=== PATIENT | female | born 1970 | race Caucasian/White ===

== ENCOUNTER 2017-09-10 12:17 | Day surgery (SDC) | payer OTHER ==
[~2017-09-10 12:17] MED LIST: Lactated Ringers 1,000 ML IV SCH; Lidocaine 1%/Sod Bicarbonate in NS 8.4% 1 ML Syringe PRN; Sodium Chloride 0.9% 10 ML Syringe FLUSH PRN
--- NOTE | 2017-09-10 12:56 | PCM.PREANE ---
Preanesthetic Assessment - Anesthesia/Transfusion/Family Hx Anesthesia History: Prior Anesthesia Reaction Type of Anesthesia Reaction: Excessive Nausea/Vomiting Family History of Anesthesia Reaction: No Transfusion History: No Prior Transfusion(s) Intubation History: Unknown - Review of Systems General: No Symptoms Pulmonary: No Symptoms Cardiovascular: No Symptoms Gastrointestinal: No Symptoms Neurological: No Symptoms Other: Reports: None - Physical Assessment NPO Status Date: 09/09/17 NPO Status Time: 23:00 O2 Sat by Pulse Oximetry: 95 Respiratory Rate: 16 Vital Signs: Last Vital Signs Temp 36.9 C 09/10/17 12:20 Pulse 59 L 09/10/17 12:20 Resp 16 09/10/17 12:20 BP 107/68 09/10/17 12:20 Pulse Ox 95 09/10/17 12:20 ASA Class: 1 Mental Status: Alert & Oriented x3 Airway Class: Mallampati = 1 Dentition: Reports: Normal Dentition Thyro-Mental Finger Breadths: 3 Mouth Opening Finger Breadths: 3 ROM/Head Extension: Full Lungs: Clear to Auscultation, Normal Respiratory Effort Cardiovascular: Regular Rate, Regular Rhythm - Allergies Allergies/Adverse Reactions: Allergies Allergy/AdvReac Type Severity Reaction Status Date / Time Penicillins Allergy Cannot Verified 09/09/17 07:45 Remember Sulfa (Sulfonamide Allergy Cannot Verified 09/09/17 07:45 Antibiotics) Remember - Acknowledgements Anesthesia Type Planned: MAC Pt an Appropriate Candidate for the Planned Anesthesia: Yes Alternatives and Risks of Anesthesia Discussed w Pt/Guardian: Yes Pt/Guardian Understands and Agrees with Anesthesia Plan: Yes PreAnesthesia Questionnaire HEENT History: Reports: Other (See Below) Other HEENT History: brow ptosis, sore throat, nasal polyp Cardiovascular History: Reports: None Respiratory History: Reports: None Gastrointestinal History: Reports: Other (See Below) Other Gastrointestinal History: abdominal pain, blood in stool, diarrhea 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) Other OB/BYN History: hot flashes, 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 Musculoskeletal History: Reports: Other (See Below) Other Musculoskeletal History: plantar fasciitis, shoulder surgery Neurological History: Reports: None Psychiatric History: Reports: None Endocrine/Metabolic History: Reports: Obesity/BMI 30+, Other (See Below) Other Endocrine/Metabolic History: unwanted hair Hematologic History: Reports: None Immunologic History: Reports: None Oncologic (Cancer) History: Reports: None Dermatologic History: Reports: Other (See Below) Other Dermatologic History: rhytides - Past Surgical History Head Surgeries/Procedures: Reports: None Cardiovascular Surgical History: Reports: None Respiratory Surgical History: Reports: None GI Surgical History: Reports: None Female Surgical History: Reports: Breast Implant, Hysterectomy Endocrine Surgical History: Reports: None Neurological Surgical History: Reports: None Dermatological Surgical History: Reports: None - SUBSTANCE USE Smoking Status *Q: Never Smoker Recreational Drug Use History: No - HOME MEDS Home Medications: Home Meds Venlafaxine HCl [Venlafaxine ER] 37.5 mg PO DAILY 09/09/17 [History] - CURRENT (IN HOUSE) MEDS Current Meds: Current Medications Lactated Ringer's (Ringers, Lactated) 1,000 mls @ 125 mls/hr IV ASDIRECTED KATALINA Stop: 09/10/17 23:00 Lidocaine/Sodium Bicarbonate (Buffered Lidocaine 1% In Ns 8.4%) 0.25 ml .XX ONETIME PRN PRN Reason: Prior to IV Start Stop: 09/10/17 18:00 Sodium Chloride (Saline Flush) 10 ml FLUSH ASDIRECTED PRN PRN Reason: Keep Vein Open Stop: 09/10/17 18:00
[2017-09-10] MEDS ORDERED: Propofol 200 MG/20 ML SDV ONE ×2 (13:48→14:20)
[2017-09-10] MEDS ORDERED: Lidocaine 1% 2 ML ONE ×2 (14:02)
--- NOTE | 2017-09-10 14:33 | PCM48HPAN ---
Post Anesthesia Note - EVALUATION WITHIN 48HRS OF ANESTHETIC Vital Signs in Normal Range: Yes Patient Participated in Evaluation: Yes Respiratory Function Stable: Yes Airway Patent: Yes Cardiovascular Function Stable: Yes Hydration Status Stable: Yes Pain Control Satisfactory: Yes Nausea and Vomiting Control Satisfactory: Yes Mental Status Recovered: Yes
[2017-09-10] MEDS ORDERED: Ondansetron 4 MG/2 ML SDV ONE (14:34)
--- NOTE | 2017-09-10 14:34 | PCM.OPNOTE ---
- General Post-Op/Procedure Note Date of Surgery/Procedure: 09/10/17 Operative Procedure(s): colonoscopy with ileal biopsy and rectal biopsy 2 using cold forceps Findings: Normal ileum and grossly normal colon. Endoscopic mild proctitis. Significantly increased amount of mucus within the distal colon. Pre Op Diagnosis: chronic diarrhea of unknown etiology Post-Op Diagnosis: mild proctitis Anesthesia Technique: MAC, Moderate Sedation Primary Surgeon: Mike Lynn Pathology: ileal and rectal biopsies EBL in mLs: 0 Complications: None Condition: Good Free Text/Narrative:: After adequate IV sedation and analgesia was obtained the patient was placed on her left side with monitoring. Perianal inspection and digital rectal examination were performed next and were unremarkable. A lubricated colonoscope was then inserted into the rectum then advanced under direct vision to the cecum. Some abdominal pressure was needed for this. The left colon contained increased amount of mucus. I intubated the terminal ileum and this structure was grossly normal. Given her history I took a biopsy for histologic review. The cecum, ascending, transverse, and descending colons were endoscopically normal with no mass lesions or inflammatory changes seen in this area. The bowel preparation was adequate and so submucosal vascularity could be observed and was grossly normal throughout. The sigmoid was unremarkable. The rectum had a slightly decreased amount of mucosal vascularity with some thickening of the mucosa. no ulcers or erythematous inflammatory changes present. I took biopsies 2 with cold forceps for histologic evaluation. In the retroflexed view within the rectum there were no mass lesions. Air was removed as I finished the procedure which she tolerated well. Attending Anesthesiologist photographs were taken for the patient and for the medical record.
== END 2017-09-10 14:56 | disposition home or self-care (01) ==
LOC: JD.SDS 12:17
PROVIDERS: ATTEND Surgery
DX: K62.89 Other specified diseases of anus and rectum (principal); Z88.0 Allergy status to penicillin; Z88.2 Allergy status to sulfonamides; Z79.899 Other long term (current) drug therapy; Z72.0 Tobacco use
CPT/HCPCS: 45380; J2405; J7120; 00810; J2704

== ENCOUNTER 2020-08-25 12:30 | Emergency (ER) | payer OTHER ==
--- NOTE | 2020-08-25 14:14 | EDM.PDOC ---
ED HPI GENERAL MEDICAL PROBLEM - General Chief Complaint: Chest Pain Stated Complaint: CHEST PAIN SENT BY ABDIEL Time Seen by Provider: 08/25/20 14:05 Source of Information: Reports: Patient, RN Notes Reviewed - History of Present Illness INITIAL COMMENTS - FREE TEXT/NARRATIVE: onset of chest discomfort at work about 6 hrs ago. Now that she is here in the ED feels better. Did have Landry, some nausea yesterday and also about a week ago. No hx of Htn, CAD, diabetes, does not smoke, fam. hx neg, occas GERD. Hx covid back a couple of months ago. Left Neck Pain Score (Numeric/FACES): 8 Left Shoulder Pain Score (Numeric/FACES): 9 - Related Data Allergies Allergy/AdvReac Type Severity Reaction Status Date / Time Penicillins Allergy Severe Cannot Verified 08/25/20 13:17 Remember Sulfa (Sulfonamide Allergy Severe Cannot Verified 08/25/20 13:17 Antibiotics) Remember Home Meds: Home Meds Venlafaxine HCl [Venlafaxine ER] 75 mg PO DAILY 09/09/17 [History] Past Medical History HEENT History: Reports: Other (See Below) Other HEENT History: brow ptosis, sore throat, nasal polyp Cardiovascular History: Reports: None Respiratory History: Reports: None Gastrointestinal History: Reports: Other (See Below) Other Gastrointestinal History: abdominal pain, blood in stool, diarrhea 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, 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 Musculoskeletal History: Reports: Other (See Below) Other Musculoskeletal History: plantar fasciitis, shoulder surgery Neurological History: Reports: None Psychiatric History: Reports: None Endocrine/Metabolic History: Reports: Obesity/BMI 30+, Other (See Below) Other Endocrine/Metabolic History: unwanted hair Hematologic History: Reports: None Immunologic History: Reports: None Oncologic (Cancer) History: Reports: None Dermatologic History: Reports: Other (See Below) Other Dermatologic History: rhytides - Past Surgical History Head Surgeries/Procedures: Reports: None Cardiovascular Surgical History: Reports: None Respiratory Surgical History: Reports: None GI Surgical History: Reports: None Female Surgical History: Reports: Breast Implant, Hysterectomy Endocrine Surgical History: Reports: None Neurological Surgical History: Reports: None Dermatological Surgical History: Reports: None Social & Family History - Tobacco Use Tobacco Use Status *Q: Never Tobacco User - Caffeine Use Caffeine Use: Reports: Coffee, Tea - Recreational Drug Use Recreational Drug Use: No ED ROS GENERAL - Review of Systems Review Of Systems: See Below Constitutional: Denies: Fever, Chills, Diaphoresis HEENT: Reports: No Symptoms Respiratory: Denies: Shortness of Breath, Cough Cardiovascular: Reports: Chest Pain GI/Abdominal: Reports: Nausea (last evening). Denies: Abdominal Pain, Vomiting Musculoskeletal: Reports: Shoulder Pain (mild this past morning, now gone) Skin: Denies: Rash ED EXAM, GENERAL - Physical Exam Exam: See Below General Appearance: Alert, No Apparent Distress Head: Atraumatic Neck: Supple Respiratory/Chest: No Respiratory Distress, Normal Breath Sounds, Chest Non- Tender Cardiovascular: Regular Rate, Rhythm GI/Abdominal: Soft, Non-Tender Extremities: No: Pedal Edema, Leg Pain, Increased Warmth, Redness Neurological: Alert, Oriented, No Motor/Sensory Deficits Skin Exam: Warm, Dry, Normal Color #1 Interpretation EKG Date: 08/25/20 Rhythm: NSR [place]: Normal P-Wave: Present QRS: Normal ST-T: Normal Course - Vital Signs Last Recorded V/S: Last Vital Signs Temp 97.8 F 08/25/20 16:10 Pulse 54 L 08/25/20 16:10 Resp 16 08/25/20 16:10 BP 115/67 08/25/20 16:10 Pulse Ox 97 08/25/20 16:10 - Orders/Labs/Meds Orders: Active Orders 24 hr Category Date Time Status Chest 1V Frontal [CR] Stat Exams 08/25/20 14:23 Taken Labs: Laboratory Tests 08/25/20 Range/Units 14:40 Troponin I < 0.017 (0.00-0.056) ng/mL - Re-Assessments/Exams Free Text/Narrative Re-Assessment/Exam: 08/25/20 15:17 CXR shows mild hyperinflation, no acute changes, EKG also does not show acute changes. Awaiting trop. Sinus rythm, no ectopy. Trop has come back neg. Departure - Departure Time of Disposition: 15:40 Disposition: Home, Self-Care 01 Condition: Fair Clinical Impression: Atypical chest pain Instructions: Nonspecific Chest Pain, Adult, [id number] Referrals: Bhavna Sorenson MD [Primary Care Provider] - Forms: ED Department Discharge Additional Instructions: Rest, consider antacid or tums for any acid reflux type symptoms. Your heart and lungs have checked out well at this time. Follow up clinic if not back to normal by Friday. Return to ED as needed if symptoms worsening in any way. Sepsis Event Note (ED) - Evaluation Sepsis Screening Result: No Definite Risk - My Orders Last 24 Hours: My Active Orders 08/25/20 14:23 Chest 1V Frontal [CR] Stat - Assessment/Plan Last 24 Hours: My Active Orders 08/25/20 14:23 Chest 1V Frontal [CR] Stat
--- NOTE | 2020-08-28 10:33 | CR ---
PROCEDURE INFORMATION: Exam: XR Chest, 1 View Exam date and time: 08/25/2020 2:13 PM Age: 50 years old Clinical indication: Chest pain; Type not specified TECHNIQUE: Imaging protocol: XR of the chest Views: 1 view. COMPARISON: No relevant prior studies available. FINDINGS: Lungs: The lungs are hyperinflated, consistent with underlying small airways disease. Pleural space: Unremarkable. No pleural effusion. No pneumothorax. Heart/Mediastinum: Unremarkable. No cardiomegaly. Bones/joints: The thoracic spine demonstrates mild degenerative changes at multiple levels. IMPRESSION: The lungs are hyperinflated, consistent with underlying small airways disease. Thank you for allowing us to participate in the care of your patient. Dictated and Authenticated by: Lorenzo Knox DO 08/25/2020 3:45 PM Central Time ([place] & [place]) [facility]ITAL[facility]
== END 2020-08-25 16:10 | disposition home or self-care (01) ==
LOC: JD.ED 12:30
DX: R07.89 Other chest pain (principal); M54.2 Cervicalgia; E66.9 Obesity, unspecified; Z68.32 Body mass index [BMI] 32.0-32.9, adult; Z86.19 Personal history of other infectious and parasitic diseases; Z88.0 Allergy status to penicillin; Z88.2 Allergy status to sulfonamides
CPT/HCPCS: 36415; 71045; 71045-26; 84484; 93005; 93010; 99283; 99285-25